=== PATIENT | male | born 1985 | race Two or more races ===

== ENCOUNTER 2025-06-06 07:42 | Emergency (ER) | payer OTHER, SELFPAY ==
[2025-06-06] VITALS (22 sets, daily range): BP systolic 123–147; BP diastolic 51–92; BMI 29.7
--- NOTE | 2025-06-06 08:15 | ED.GENMED ---
History of Present Illness
General
Chief Complaint: Musculo-Skeletal Complaint
Source: patient
Exam Limitations: none
Time Seen by Provider: 06/06/25 08:10
Nursing documentation reviewed up to this point in time: agreed with
History of Present Illness
History of Present Illness:
39-year-old male with no reported chronic medical issues presents to the emergency room for evaluation of left ankle injury after slip and fall. Patient was wearing slippers, slipped on the ice and fell suffering an inversion injury of the left
ankle. Had immediate pain and swelling in the ankle and has had difficulty bearing weight since. He denies any head strike or other injuries�specifically denies headache, neck pain, back pain, rib pain. Denies injury to the upper extremities.
Not on any blood thinners.
Review of Systems
Review of Systems
All Other Systems: ROS reviewed and negative except as documented in HPI and ROS
Respiratory: Denies trouble breathing
Cardiac: Denies chest pain
ABD/GI: Denies abdominal pain or nausea
Musculoskeletal: Reports joint pain; Denies neck pain or back pain
Neurological: Denies dizzy or headache
Phy Exam
Physical Exam
Physical Exam:
General: Awake, alert, oriented x3; appears uncomfortable
Head: Normocephalic, atraumatic
Eyes: Conjunctiva normal
Throat: Airway intact, handling secretions
Neck: Trachea midline, no cervical spine tenderness
Back: No tenderness in the thoracic or lumbar spine
Lungs: Breathing comfortably with no evidence of respiratory distress
Heart: Regular rate; no chest wall tenderness
Abd: Soft, non distended, nontender
Neuro: Grossly intact
Skin: Warm and dry
Extremities: Patient has swelling of the left ankle medial and lateral malleolus, tenderness of the lateral malleolus and bruising in this area; no tenderness to the calcaneus or along the Achilles or calf, no tenderness of the left knee/proximal
fibula; no tenderness of the midfoot; strong left DP pulse present; rest of extremities appear atraumatic
Scores
Heart Failure Risk
Heart Failure Risk Score: Not Applicable
Heart Score for Chest Pain Patients
STEMI patient?: Not applicable
Withdrawal Assessment of Alcohol
Withdrawal Assessment Completed?: Not applicable
Course
Orders/Labs/Results
Orders:
Orders
06/06/25 07:46
Ankle, left 3 view CR [CR Ankle - Left Min 3 Views ] Urgent
Comment:
Reason For Exam: injury
06/06/25 08:14
CR Knee - Left 4 Or More View* Urgent
Comment:
Reason For Exam: left fibular fx
06/06/25 08:15
Ibuprofen [Motrin] 400 mg PO NOW STA
06/06/25 10:42
Propofol [Diprivan] 20 ml .ROUTE .STK-MED
06/06/25 11:08
CR Ankle - Left Min 3 Views Urgent
Comment: portable-moderate sedation given
Reason For Exam: post reduction
06/06/25 11:39
Crutches-Treatment ONCE
Vital Signs
Initial and Last Documented VS:
Initial Vital Signs
Temp Pulse Resp BP Pulse Ox
36.6 C 68 16 147/92 99
06/06/25 07:44 06/06/25 07:44 06/06/25 07:44 06/06/25 07:44 06/06/25 07:44
Last Documented Vital Signs
Temp Pulse Resp BP Pulse Ox
36.8 C 57 17 131/79 99
06/06/25 12:00 06/06/25 12:04 06/06/25 12:04 06/06/25 12:04 06/06/25 12:04
Procedures
Moderate Sedation
ASA Risk Score: Class I
Chart and allergies reviewed: Yes
Consent for anesthesia obtained: Yes
Time out completed (validating right patient & procedure): Yes
Moderate Sedation Start Time(when first medication is given): 11:00
History of difficult intubation: No
Airway free of obstruction: Yes
Patient has a gag reflex: Yes
Patient is able to open mouth: Yes
Patient has no dentures: Yes
Patient has no loose teeth: Yes
Medication administered by Provider during Moderate Sedation: IV Propofol (mg)
Total dose administered: 100
Time drug administered: 11:00
Moderate Sedation Procedure End Time: 11:28
Splinting/Sling Placement
Left Ankle:
Procedure completed by: Monroe Wang MD
Pre-splint extermity exam: neurovascular intact
Type of splint: posterior short leg (with stirrup)
Splint material: plaster
Splint checked by provider?: Yes
Normal distal neurovascular exam?: Yes
Joint/Fracture Reduction
Left Ankle:
Indication for procedure:: fracture, dislocation
Procedure completed by: Monroe Wang MD
Consent form signed: Yes
Anesthesia/sedation: Moderate sedation
Injury was: closed
Further treatement: needs further treatment
Post reduction exam: stable
Capillary Refill: normal
Normal distal neurovascular exam?: Yes
MDM/Problems Addressed
Differential Diagnosis Includes:
Fracture, sprain
MDM/Problems Addressed:
39-year-old male presents for evaluation of left ankle injury. Unable to bear weight, swelling and tenderness as noted. Neurovascular exam intact. No other injuries noted on exam. Vital signs are stable. X-ray of the ankle in triage shows
distal fibular fracture and question tibiotalar dislocation�will send back for x-ray of the knee/proximal fibula to rule out fracture. Treat with Motrin for now.
Proximal fibular x-ray no fracture noted. Reviewed x-rays with orthopedist who recommended reduction of tibial talar joint for better positioning. Discussed with patient options of joint block versus moderate sedation he prefers moderate sedation
and so we will proceed with reduction under moderate sedation and splinting of his fracture. Will need outpatient orthopedic follow-up thereafter.
*Radiology
Radiology exam reviewed: preliminary read by ED provider and radiology read reviewed
*Pulse Oximetry
SaO2: 99
Oxygen Mode of Delivery: Room air
Patient hypoxic: no (99%)
*Critical Care Note
Total Time (30-74mins, 75-104mins- exclusive of procedures): Not Applicable
Data Reviewed
Source: patient and spouse
Patient Management
Discussion with other providers: Plate Glass Polisher (Discussed with orthopedist)
ED Attending Note
-
Portions of this chart may have been created with voice recognition software.� Occasional wrong word or��sound alike� substitutions may have occurred due to the inherent limitations of voice recognition software.
Discharge Plan
Departure
Patient Disposition: Home (Routine Discharge)
Date of Disposition: 06/06/25
Time of Disposition: 11:49
Patient with high blood pressure during this ER visit?: Yes
Discharge Problem:
Ankle fracture
Instructions: Ankle Fracture (DC), MODERATE SEDATION ADULT
Referrals:
Cameron Vinson MD [Active, Podiatry] - Call in 1-3 days for appt
Activity Restrictions/Additional Instructions:
Thank you for visiting the Emergency Department at [facility].
1. Please schedule a follow up appointment as directed. Call first thing tomorrow morning to make an appointment.
2. If indicated, please take your medications as instructed and indicated on discharge paperwork.
3. If any of your symptoms do not improve, or persist, or become more severe within 6-12 hours, please return to the emergency department for further care.
4. Please return to the emergency department if you develop a headache, neck pain/stiffness, fever greater than 100.4F, chest pain, shortness of breath, persistent nausea, vomiting, slurred speech, difficulty walking, numbness/tingling, weakness,
signs of infection or any other symptoms that are worrisome to you.
Please call [phone] if you have any questions.
Interventions
Interventions:
*Risk Screen - Suicide Last Done: 06/06/25 07:45
*General Assessment Last Done: 06/06/25 08:15
*Neglect/Abuse Screening Last Done: 06/06/25 07:45
*ED COVID-19 Vaccine History Last Done: 06/06/25 08:15
*ED Influenza Vaccine History Last Done: 06/06/25 08:15
[facility] Fall Risk Assessment Tool Last Done: 06/06/25 08:15
ED-Musculoskeletal Assessment Last Done: 06/06/25 08:15
Discharge Date and Time
Print Language: PERUVIAN
[2025-06-06] MEDS: MOTRIN 400 MG PO (08:23)
== END 2025-06-06 13:07 | disposition home or self-care (01) ==
LOC: EMR 07:42
PROVIDERS: EMERGENCY PHYSICIAN Emergency Medicine
DX: S82.832A Other fracture of upper and lower end of left fibula, initial encounter for closed fracture (principal); W00.0XXA Fall on same level due to ice and snow, initial encounter; X50.1XXA Overexertion from prolonged static or awkward postures, initial encounter
CPT/HCPCS: 27788; 99152; 99285; 73564; 73610